=== PATIENT | female | born 1980 | race Caucasian/White ===

== ENCOUNTER → 2019-01-08 | Outpatient (CLI) | payer OTHER | LOC: RADXRMAIN 13:05 | PROVIDERS: ATTEND Pediatrics | DX: Z53.9 Procedure and treatment not carried out, unspecified reason (principal) ==

== ENCOUNTER → 2019-11-15 | Outpatient (CLI) | payer OTHER ==
--- NOTE | 2019-11-15 15:59 | MR ---
EXAMINATION TYPE: MR knee LT wo con DATE OF EXAM: 11/15/2019 COMPARISON: None HISTORY: Left knee pain TECHNIQUE: Multiplanar, multisequence images of the knee is performed without IV contrast. FINDINGS: MEDIAL MENISCUS: There is increased signal within the substance of the posterior horn medial meniscus compatible some internal derangement or degenerative change. LATERAL MENISCUS: Anterior and posterior horns are intact without tear. CRUCIATE LIGAMENTS: The anterior and posterior cruciate ligaments are intact and unremarkable. COLLATERAL LIGAMENTS: The medial collateral ligament and lateral collateral ligament complex are inta ct and unremarkable. EXTENSOR MECHANISM: Visualized quadriceps and patellar tendons are intact. EFFUSION: No significant suprapatellar joint effusion. POPLITEAL CYST: No popliteal/alvarado cyst. TRICOMPARTMENT SPACES: Joint spaces are preserved. CARTILAGE: Cartilage appears intact. BONE MARROW SIGNAL: There is a focus of increased signal within the marrow of the medial metaphyseal tibia. Correlate for medullary infarct. Other etiologies are not excluded at this time. Correlation w ith plain film may be useful. OTHER: No additional significant abnormality is appreciated. IMPRESSION: 1. Mild internal derangement or degenerative change posterior horn medial meniscus. 2. Medullary medial metaphyseal tibial signal change. Medullary infarct could be considered. Plain fi lm correlation is recommended.
== END | disposition home or self-care (01) ==
LOC: RADMRIMAIN 11:13
PROVIDERS: ATTEND Orthopaedic Surgery
DX: M17.12 Unilateral primary osteoarthritis, left knee (principal)